=== PATIENT | male | born 1990 | race Caucasian/White ===

== ENCOUNTER 2018-01-12 11:04 | Emergency (ER) | payer SELFPAY ==
[~2018-01-12] VITALS: Ht 185.4 cm; Wt 83.9 kg
[2018-01-12 12:52] VITALS: BP_SYST 124
--- NOTE | 2018-01-12 12:52 | NUR ---
Placed in H1 awaiting eval
--- NOTE | 2018-01-12 12:52 | NUR ---
Pt complains of two puncture wounds to bottom of left foot. Pt states he was wearing sneakers and stepped on a nail last night, resulting in two puncture wounds. Pt denies drainage, N/V, fever. Pt is AAO x 4 and ambulatory. No other injuries/complaints per patient or noted.
--- NOTE | 2018-01-12 12:53 | NUR ---
ER at bedside examining patient.
[2018-01-12] MEDS ORDERED: DIPH-TET-PERTUS Vaccine 0.5 ML VIAL (ADACEL) I.M. ONE (13:00)
[2018-01-12 13:45] VITALS: BP_SYST 127
--- NOTE | 2018-01-12 13:45 | NUR ---
Patient given written and verbal discharge instructions and verbalizes understanding. ER MD discussed with patient the results and treatment provided. Patient in stable condition. ID arm band removed. Rx of Tylenol and Keflex given. Patient educated on pain management and to follow up with PMD. Pain Scale 2. Opportunity for questions provided and answered. Medication side effect fact sheet provided.
== END 2018-01-12 13:45 | disposition home or self-care (01) ==
LOC: SED 11:04
DX: S91.332A Puncture wound without foreign body, left foot, initial encounter (principal); W45.0XXA Nail entering through skin, initial encounter; Y93.89 Activity, other specified; Y92.89 Other specified places as the place of occurrence of the external cause; Y99.8 Other external cause status
CPT/HCPCS: 90715; 99283